=== PATIENT | female | born 1950 | race Caucasian/White ===

== ENCOUNTER 2021-01-07 08:36 | Outpatient (CLI) | payer OTHER ==
[~2021-01-07] VITALS: Ht 167.6 cm; Wt 108.9 kg
[~2021-01-07 08:36] MED LIST: FUROSEMIDE 40 M40 MG PO; LIPITOR40 MG PO; LOPRESSOR50 MG PO; NORVASC5 MG PO; PACERONE 200 M200 M1 PO; PRADAXA150 MG PO; ZESTRIL40 MG PO
[2021-01-07 09:36] LABS: HEMATOCRIT 35.4 % (37.0-47.0); HEMOGLOBIN 11.1 gm/dL (12.0-15.0); MCH 27.5 pg (26.0-34.0); MCHC 31.3 g/dL (28.0-37.0); MCV 87.9 fL (80.0-100.0); RBC 4.03 mil/uL (4.20-5.00); RDW 18.5 % (10.5-14.5); WBC 4.1 thou/uL (4.0-11.0)
[2021-01-07 09:42] LABS: CALCIUM 10.1 mg/dL (8.5-10.1)
[2021-01-07 09:47] LABS: POTASSIUM 2.9 mmol/L (3.5-5.1)
[2021-01-07 09:57] VITALS: BP 197/68
--- NOTE | 2021-01-11 17:06 | PATH ---
[facility] [address] [place] [address] PATHOLOGY RPT PROCEDURE Name: TERESA NUNEZ Room #: DEP MARQUIS Patrick#: [id number] Admission: 01/07/21 Date of : 50 Discharge: 01/07/21 Report #: [id number] Path Case #: [id number] Note [facility] Accession Number: [id number] TESTS RESULT FLAG UNITS REF RANGE LAB Clinician Provided Cytology Information No. of containers..01 Other (Miscellaneous) Source: BRUSH TIP RLL DIAGNOSIS: 02 BRUSH TIP RLL NEGATIVE FOR MALIGNANT EPITHELIAL CELLS. NORMAL BRONCHIAL CELLS ARE PRESENT. ABUNDANT RED BLOOD CELLS ARE PRESENT. Pathologist ICD10: 02 R91.8 Signed out by: 02 Myah Holly MD, Pathologist NPI- [id number] Performed by: 01 Kerry Diaz Social Science Professor ([facility]) Gross description: 01 TINGED RED, 1 TP /LCS 01/08/2021 1452 Local FLAG LEGEND: L-Low Normal,H-High Normal,LL-Alert Low,HH-Alert High <-Panic Low,>-Panic High,A-Abnormal,AA-Critical Abnormal Performed at: [address] [place] [address] Livan Carranza MD, [address] [address] Myah Holly MD, Specimen Comment: A courtesy copy of this report has been sent to [phone] Specimen Comment: Report sent to Performed at: [address], [place], [place] [id number] MD Livan Carranza MD Phone: [phone]
--- NOTE | 2021-01-11 17:06 | PATH ---
[facility] [address] [place] [address] PATHOLOGY RPT PROCEDURE Name: TERESA NUNEZ Room #: DEP MARQUIS CrawfordTunde#: [id number] Admission: 01/07/21 Date of : 50 Discharge: 01/07/21 Report #: [id number] Path Case #: [id number] Note [facility] Accession Number: [id number] TESTS RESULT FLAG UNITS REF RANGE LAB Clinician Provided Cytology Information No. of containers..01 Other (Miscellaneous) Source: BAL RLL DIAGNOSIS: BAL RLL NEGATIVE FOR MALIGNANT EPITHELIAL CELLS. NORMAL BRONCHIAL CELLS ARE PRESENT. PULMONARY MACROPHAGES PRESENT, INDICATIVE OF LOWER RESPIRATORY TRACT SAMPLING. CELLULAR DEGENERATION IS PRESENT. Pathologist ICD10: 02 R91.8 Signed out by: 02 Myah Holly MD, Pathologist NPI- [id number] Performed by: Silverio Diaz Manager Of International ([facility]) Gross description: 01 25ML, CLOUDY RED, 1 TP /LCS 01/08/2021 1441 Local FLAG LEGEND: L-Low Normal,H-High Normal,LL-Alert Low,HH-Alert High <-Panic Low,>-Panic High,A-Abnormal,AA-Critical Abnormal Performed at: [address] [place] [address] Livan Carranza MD, [address] [address] Myah Holly MD, Specimen Comment: A courtesy copy of this report has been sent to [phone] Specimen Comment: Report sent to Performed at: [address], [place], [place] [id number] MD Livan Carranza MD Phone: [phone]
--- NOTE | 2021-01-11 17:06 | PATH ---
[facility] [address] [place] [address] PATHOLOGY RPT PROCEDURE Name: TERESA NUNEZ Room #: DEP MARQUIS Patrick#: [id number] Admission: 01/07/21 Date of : 50 Discharge: 01/07/21 Report #: [id number] Path Case #: [id number] Note [facility] Accession Number: [id number] TESTS RESULT FLAG UNITS REF RANGE LAB Clinician Provided Cytology Information No. of containers..01 Slide Source: TBNA RLL DIAGNOSIS: 02 TBNA RLL NEGATIVE FOR MALIGNANT EPITHELIAL CELLS. REACTIVE BRONCHIAL CELLS ARE PRESENT. PULMONARY MACROPHAGES PRESENT, INDICATIVE OF LOWER RESPIRATORY TRACT SAMPLING. Pathologist ICD10: 02 R91.8 Signed out by: 02 Myah Holly MD, Pathologist NPI- [id number] Performed by: Silverio Diaz Brand Strategist ([facility]) Gross description: 2 FX /LCS 01/08/2021 1448 Local FLAG LEGEND: L-Low Normal,H-High Normal,LL-Alert Low,HH-Alert High <-Panic Low,>-Panic High,A-Abnormal,AA-Critical Abnormal Performed at: [address] [place] [address] Livan Carranza MD, [address] [address] Myah Holly MD, Specimen Comment: A courtesy copy of this report has been sent to [phone] Specimen Comment: Report sent to Performed at: [address], [place], [place] [id number] MD Livan Carranza MD Phone: [phone]
--- NOTE | 2021-01-11 18:06 | PATH ---
[facility] [place] [address] PATHOLOGY RPT PROCEDURE Name: TERESA FRAUSTO Room #: DEP MARQUIS Nguyen#: [id number] Admission: 01/07/21 Date of : 50 Discharge: 01/07/21 Report #: [id number] Path Case #: [id number] [facility] Accession Number: [id number] . 01 Material submitted: . lung - RLL TBNA BIOPSY FORCEPS. Modifiers: right, lower . 01 Clinical history: . RLL TBNA BIOPSY APSPEC LUNG NODULES . 02 Diagnosis: Lung, right lower lobe, TBNA biopsy: - Fragments of benign alveolated lung parenchyma with reactive changes. - Mild chronic inflammation and pigmented macrophages. - Negative for dysplasia or malignancy. . (IUV:mml; 01/11/2021) QLM 01/11/2021 1318 Local . 02 Electronically signed: . Myah Holly MD, Pathologist NPI- [id number] . 01 Gross description: . The specimen is received in formalin, labeled "Teresa Frausto, right lower lobe biopsy" received as multiple soft dutta tissue cores measuring up to 0.3 x less than 0.1cm entirely submitted in A1-A3.([facility]; 01/08/2021) SILVIO/SILVIO 01/08/20218 Local . 02 Pathologist provided ICD-10: J98.4 . 02 CPT . 087692 Specimen Comment: A courtesy copy of this report has been sent to [phone] Specimen Comment: Report sent to Performed at: [address], [place] [id number] MD Livan Carranza MD Phone: [phone] Performed at: [address] [id number] MD Myah Holly MD Phone: [phone]
== END 2021-01-07 15:50 | disposition home or self-care (01) ==
LOC: EDBD → CAT 08:36 → TBA 08:43 → PUL 08:51 → CAT 10:17 → PUL 11:21 → CAT 15:50
PROVIDERS: ATTEND Pediatrics
DX: J98.4 Other disorders of lung (principal); R91.1 Solitary pulmonary nodule; R63.4 Abnormal weight loss; R91.8 Other nonspecific abnormal finding of lung field; R16.1 Splenomegaly, not elsewhere classified; R59.0 Localized enlarged lymph nodes; I10 Essential (primary) hypertension; E78.5 Hyperlipidemia, unspecified; D64.9 Anemia, unspecified; Z98.890 Other specified postprocedural states; Z79.899 Other long term (current) drug therapy; Z86.73 Personal history of transient ischemic attack (TIA), and cerebral infarction without residual deficits; Z87.891 Personal history of nicotine dependence
CPT/HCPCS: 50010; 62110; 62900

== ENCOUNTER → 2021-01-12 | Outpatient (CLI) | payer OTHER | LOC: PET 08:14 | PROVIDERS: ATTEND Internal Medicine | DX: R91.8 Other nonspecific abnormal finding of lung field (principal); J98.11 Atelectasis; R59.0 Localized enlarged lymph nodes ==